=== PATIENT | female | born 1955 | race American Indian/Alaskan Native ===

== ENCOUNTER 2020-03-03 08:29 | Emergency (ER) | payer MEDICARE ==
[2020-03-03 08:48] VITALS: BP 192/116
[2020-03-03] MEDS ORDERED: ASPIRIN 81 MG TAB CHEW PO ONE (09:07)
[2020-03-03] MEDS ORDERED: NITROGLYCERIN 0.4 MG TAB SUBL SL PRN (09:07)
[2020-03-03] MEDS ORDERED: ONDANSETRON 4 MG/2 ML INJ IV ONE (09:08)
[2020-03-03] MEDS ORDERED: MORPHINE 4 MG/1 ML INJ IV ONE (09:08)
[2020-03-03] MEDS ORDERED: FAMOTIDINE 20 MG/2 ML INJ IV ONE (09:08)
[2020-03-03] MEDS ORDERED: LISINOPRIL 20 MG TAB PO ONE (09:08)
[2020-03-03] MEDS ORDERED: hydrALAZINE 25 MG TAB PO ONE (09:26)
[2020-03-03 09:43] LABS: Basophils % (Auto) 0.9 % (0.0-1.8); Eosinophils # (Auto) 0.2 K/mm3 (0.0-0.4); Hematocrit 37.5 % (30.3-42.9); Hemoglobin 12.9 gm/dl (10.1-14.3); Lymphocytes # (Auto) 1.6 K/mm3 (1.2-5.4); Lymphocytes % (Auto) 37.2 % (13.4-35.0); Mean Corpuscular HGB Conc 34 % (30-34); Mean Corpuscular Volume 88 fl (79-97); Monocytes # (Auto) 0.3 K/mm3 (0.0-0.8); Monocytes % (Auto) 8.3 % (0.0-7.3); Platelet Count 228 K/mm3 (140-440); Red Blood Count 4.25 M/mm3 (3.65-5.03); Red Cell Distribution Width 15.1 % (13.2-15.2)
[2020-03-03 10:29] LABS: BUN/Creatinine Ratio 18; Blood Urea Nitrogen 14 mg/dL (7-17); Calcium 9.7 mg/dL (8.4-10.2); Hemolysis Index 6
--- NOTE | 2020-03-03 11:47 | XRay Report ---
CHEST 1 VIEW INDICATION: Chest Pain. COMPARISON: None FINDINGS: Support devices: None. Heart: Within normal limits. Lungs/Pleura: No acute air space or interstitial disease. Additional findings: None. IMPRESSION: No acute findings. Signer Name: Marcel Hatch Jr, MD Signed: 03/03/2020 11:42 AM Workstation Name: [id number]
--- NOTE | 2020-03-03 12:14 | Emergency Department Report ---
ED Chest Pain HPI - General Chief Complaint: Chest Pain Stated Complaint: CHEST PAIN Time Seen by Provider: 03/03/20 08:51 Source: EMS Mode of arrival: Stretcher Limitations: No Limitations - History of Present Illness Initial Comments: CC: chest pain HPI: This is a 64 yo female with hx of HTN and asthma who presents with chest pain. This morning, she suddenly felt throbbing sensation in her chest. Mild in severity. Occurred at rest. No leg pain. NO shortness of breath. Patient recently flew from [place], [place] to visit relative in [place]. NO hx of DVT. MD Complaint: chest pain -: Sudden, This morning Onset: during rest Pain Location: substernal Pain Radiation: none Severity: mild Severity scale (0 -10): 10 Quality: other ("throbbing") Consistency: now resolved Improves With: rest Worsens With: nothing Context: recent travel - Related Data Previous Rx's Medication Instructions Recorded Last Taken Type Levalbuterol Tartrate [Xopenex Hfa] 2 inh IH Q4H PRN #1 hfa.[email or web address] 03/03/20 Unkn own Rx Allergies Allergy/AdvReac Type Severity Reaction Status Date / Time No Known Allergies Allergy Unverified 03/03/20 08:51 Heart Score - HEART Score History: Slightly suspicious EKG: Non-specific Age: 45-65 Risk factors: No known risk factors Troponin: < normal limit HEART Score: 2 ED Review of Systems ROS: Stated complaint: CHEST PAIN Other details as noted in HPI Comment: All other systems reviewed and negative Constitutional: denies: fever, malaise Respiratory: denies: cough, shortness of breath, wheezing Cardiovascular: chest pain. denies: palpitations ED Past Medical Hx - Past Medical History Previous Medical History?: Yes Hx Hypertension: Yes Hx Asthma: Yes - Social History Smoking Status: Never Smoker Substance Use Type: None - Medications Home Medications: Home Medications Medication Instructions Recorded Confirmed Last Taken Type Levalbuterol Tartrate [Xopenex Hfa] 2 inh IH Q4H PRN #1 hfa.aer.ad 03/03/20 Unknown Rx ED Physical Exam - General Limitations: No Limitations General appearance: alert, in no apparent distress - Head Head exam: Present: atraumatic, normocephalic - Eye Eye exam: Present: normal appearance - ENT ENT exam: Present: mucous membranes moist - Neck Neck exam: Present: normal inspection, full ROM - Respiratory Respiratory exam: Present: normal lung sounds bilaterally. Absent: respiratory distress, wheezes, rales, rhonchi - Cardiovascular Cardiovascular Exam: Present: regular rate, normal rhythm, normal heart sounds. Absent: systolic murmur, diastolic murmur, rubs, gallop - GI/Abdominal GI/Abdominal exam: Present: soft, normal bowel sounds. Absent: distended, tenderness, guarding, rebound - Extremities Exam Extremities exam: Present: normal inspection, normal capillary refill - Back Exam Back exam: Present: normal inspection - Neurological Exam Neurological exam: Present: alert, oriented X3 - Psychiatric Psychiatric exam: Present: normal affect, normal mood - Skin Skin exam: Present: warm, dry, intact, normal color. Absent: rash ED Course Vital Signs 03/03/20 03/03/20 03/03/20 08:47 09:04 09:15 Temperature 97.8 F Pulse Rate 66 63 Respiratory 14 14 20 Rate Blood Pressure 192/116 [Left] O2 Sat by Pulse 100 100 99 Oximetry 03/03/20 09:31 Temperature Pulse Rate 62 Respiratory 20 Rate Blood Pressure [Left] O2 Sat by Pulse 97 Oximetry ED Medical Decision Making - Lab Data Result diagrams: 03/03/20 09:28 03/03/20 09:28 Abnormal Lab Results 03/03/20 03/03/20 03/03/20 09:28 09:28 11:27 WBC 4.2 L RBC 4.25 Hgb 12.9 Hct 37.5 MCV 88 MCH 30 MCHC 34 RDW 15.1 Plt Count 228 Lymph % (Auto) 37.2 H [place] % (Auto) 8.3 H Eos % (Auto) 4.0 Baso % (Auto) 0.9 Lymph # (Auto) 1.6 [place] # (Auto) 0.3 Eos # (Auto) 0.2 Baso # (Auto) 0.0 Seg Neutrophils % 49.6 Seg Neutrophils # 2.1 Sodium 139 Potassium 3.6 Chloride 102.4 Carbon Dioxide 31 H Anion Gap 9 BUN 14 Creatinine 0.8 Estimated GFR > 60 BUN/Creatinine Ratio 18 Glucose 94 Calcium 9.7 Troponin T < 0.010 < 0.010 - Radiology Data Radiology results: report reviewed XR chest 1V ap INDICATION / CLINICAL INFORMATION: Dyspnea copd. COMPARISON: 02/27/2020. FINDINGS: SUPPORT DEVICES: None. HEART / MEDIASTINUM: No significant abnormality. LUNGS / PLEURA: Stable findings of emphysema. No focal consolidation. No pleural effusion. No pneumothorax. ADDITIONAL FINDINGS: No significant additional findings. IMPRESSION: Stable chest. No acute findings - Medical Decision Making Ms. Fernandez is a 64-year-old female with history of hypertension asthma who presents with department chest pain. I reviewed electronic record, patient reported chest pain worse with inhalation. Patient described chest pain and 2 different ways. Considering recent travel I did consider pulmonary embolism. She did not have any tachycardia work of breathing. She did not have persistent chest pain. Patient's pain atypical for ACS. Heart score 2. Troponin x2 negative. Patient requested Xopenex MDI prescription. Critical care attestation.: If time is entered above; I have spent that time in minutes in the direct care of this critically ill patient, excluding procedure time. ED Disposition Clinical Impression: Chest pain Disposition: DC-01 TO HOME OR SELFCARE Is pt being admited?: No Does the pt Need Aspirin: No Condition: Stable Instructions: Chest Pain (ED), Nonspecific Chest Pain, Adult Prescriptions: Levalbuterol Tartrate [Xopenex Hfa] 2 inh IH Q4H PRN #1 hfa.aer.ad PRN Reason: Shortness Of Breath Referrals: MALORIE RUBIO MD [Staff Physician] - 3-5 Days
== END 2020-03-03 12:50 | disposition home or self-care (01) ==
LOC: ED 08:29
DX: R07.9 Chest pain, unspecified (principal); I10 Essential (primary) hypertension; J45.909 Unspecified asthma, uncomplicated; Z79.899 Other long term (current) drug therapy
CPT/HCPCS: 36415; 71045; 80048; 84484; 85025; 93005; J2270; J2405